=== PATIENT | male | born 1980 | race Caucasian/White ===

== ENCOUNTER 2022-06-22 05:36 | Emergency (ER) | payer BC, SELFPAY ==
[2022-06-22 05:43] VITALS: BP 185/87; PULSE 89; RESP 18; TEMP 36.6; O2SAT 99; BMI 36.9
[2022-06-22 06:07] VITALS: TEMP 36.6
[2022-06-22] MEDS: CYCLOBENZAPRINE HCL 10 MG TABLET PO (06:07)
[2022-06-22] MEDS: ACETAMINOPHEN 500 MG TABLET 1000 MG PO (06:07)
[2022-06-22] MEDS: predniSONE 10 MG TABLET 40 MG PO (06:07)
--- NOTE | 2022-06-22 06:22 | ED.BACK ---
HPI - Back Pain/Injury General Chief Complaint: Back Injury/Pain Stated Complaint: Severe back pain Time Seen by Provider: 06/22/22 05:42 Source: patient and family Mode of arrival: ambulatory Limitations: no limitations History of Present Illness HPI Narrative: Patient reporting pain in the right mid/lower lateral back, worsening this morning. Six days ago, he was wrestling with his dog in the kitchen when he fell backwards striking the corner of his right lower back on the kitchen island. Pain was mild, was able to continue all typical activities. Use ibuprofen a couple of times with good improvement in his symptoms. Patient reports that last night, he coughed hard and noted a twinge of pain in the same area that was worse than before. He was uncomfortable overnight and notes sharp pain in the same area this morning. Pain does not radiate. He has no significant prior history of back surgery. Pain is constant, 7/10, worse with movement. Dull and achy in nature. It is not associated with any GI changes, nausea, vomiting. No skin changes, itching or rash noted. No prior history of similar symptoms. No prior significant imaging, x-ray, CT or MRI of the area. Last dose of ibuprofen was at 7:00 p.m. last night, took 1000 mg. I counseled on appropriate dosing. Denies any other musculoskeletal injuries. Past medical history most notable for hypertension. Reports that he takes lisinopril for this. No known drug allergies. Social history is negative for tobacco use and pertinent travel. Surgical history is negative for recent musculoskeletal or back surgeries. ROS negative for any generalized, cardiovascular, respiratory, GI, urinary, skin or other musculoskeletal issues. Related Data Previous Rx's Medication Instructions Recorded lisinopril 40 mg tablet 40 mg PO QDAY #90 tabs 05/18/22 cyclobenzaprine 10 mg tablet 10 mg PO HS PRN muscle spasm #10 06/22/22 tabs oxycodone 5 mg tablet 2.5 - 5 mg PO Q4H PRN pain #10 tabs 06/22/22 Allergies Allergy/AdvReac Type Severity Reaction Status Date / Time No Known Drug Allergies Allergy Verified 06/22/22 05:45 [facility] Medical History (Updated 06/22/22 @ 06:30 by Vicky Chapin MD) ADHD Hypertension Surgical History (Updated 06/22/22 @ 06:26 by Crow Adan RN) History of appendectomy Social History Smoking Status: Never smoker Do you use any of these nicotine containing products: None Second hand tobacco smoke exposure: No How often do you have a drink containing alcohol: never How often do you have six or more drinks on one occasion: Never AUDIT-C Alcohol total score: 0 Non-prescribed substance use: denies use Exam Const: Vital Signs, click to edit/add: Vital Signs - 24 hr 06/22/22 05:43 06/22/22 06:07 Temperature 97.8 F 97.8 F Pulse Rate [Right Pulse Oximeter] 89 Respiratory Rate 18 Blood Pressure [Le ft Upper Arm] 185/87 H Pulse Oximetry 99 Oxygen Delivery Me thod Room Air Documenting provider has reviewed patient's vital signs: yes General appearance: cooperative and well kempt Other: Mildly distressed from pain, cooperative with exam HENMT: Common normals: normocephalic Head and scalp: normocephalic Throat: posterior oropharynx normal Eye: Common normals: no scleral icterus Other: Normal visual tracking Neck & C-Spine: Common normals: full ROM Resp: Common normals: normal respiratory effort Effort & inspection: able to speak in complete sentences Cardio: Common normals: regular rate, regular rhythm and peripheral pulses 2+ throughout Rate: regular rate Rhythm: regular rhythm Peripheral pulses: pulses 2+ throughout Back & Pelvis: Common normals: thoracic and lumbar spine normal to inspection, no thoracic nor lumbar tenderness and straight leg raise negative bilaterally Other: Increased tenderness with extension and flexion. Point muscular tenderness along the right latissimus area. Spondylosis testing is negative. Straight leg lift is positive only in the 1st 10?, indicating muscular etiology, not in the arc consistent with nerve impingement. Extremity: Common normals: normal to inspection and no pedal edema Neuro: Motor exam: strength 5/5 throughout and no movement abnormalities noted Psych: Appearance: well kempt Attitude: calm and engaged Insight: insight good Judgement: judgment good Skin: Common normals: no rashes or lesions noted General skin exam: no rashes or lesions noted Course Vital Signs Vital signs: Initial Vital Signs Temperature 97.8 F 06/22/22 05:43 Temperature Source Temporal Artery Scan 06/22/22 05:43 Pulse Rate 89 06/22/22 05:43 Respiratory Rate 18 06/22/22 05:43 Blood Pressure 185/87 H 06/22/22 05:43 Blood Pressure Mean 119 06/22/22 05:43 Blood Pressure Position Standing 06/22/22 05:43 Pulse Oximetry 99 06/22/22 05:43 Oxygen Delivery Method 06/22/22 05:43 Vital Signs Temperature 97.8 F 06/22/22 05:43 Pulse Rate 89 06/22/22 05:43 Respiratory Rate 18 06/22/22 05:43 Blood Pressure 185/87 H 06/22/22 05:43 Pulse Oximetry 99 06/22/22 05:43 Oxygen Delivery Method 06/22/22 05:43 Temperature 97.8 F 06/22/22 06:07 Pulse Rate 89 06/22/22 05:43 Respiratory Rate 18 06/22/22 05:43 Blood Pressure 185/87 H 06/22/22 05:43 Pulse Oximetry 99 06/22/22 05:43 Oxygen Delivery Method 06/22/22 05:43 MDM - Back Pain/Injury MDM Narrative Medical decision making narrative: Do not recommend imaging, as exam is consistent with muscular etiology and history would not indicate a need for imaging. Recommended trial of therapeutic medications in the emergency department. Prednisone 40 mg p.o. x1, 1000 mg of Tylenol and 10 mg of Flexeril. Will reassess in 1 hour. If no improvement, consider additional imaging, urinalysis. Update 0650: Medications given about 40 minutes before, not noting any improvement. Will give 10 mg of p.o. oxycodone x1 and reassess. Update 0745, patient with marked improvement after 2nd round of medications. We discussed discharge plan and he is in agreement with no further questions. Differential Diagnosis Differential diagnosis: Likely lumbar radiculopathy, sciatica, strain of lumbar region, renal colic, thoracic back pain and discitis Discharge Plan Discharge Clinical Impression: Strain of lumbar region Patient Disposition: Home w/ Parent or Adult Condition: Improved Instructions: Low Back Strain (ED), Lower Back Exercises (ED) Additional Instructions: For the pain, I recommend beginning with Tylenol. Take 2 extra-strength Tylenol which is a 1000 mg, the equivalent of 3 regular tablets 4 times daily. Alternate with ice and heat for comfort. Take appropriate doses of ibuprofen which is 600 mg every 6 hours as needed. I will also give you prescription for muscle relaxants and oxycodone at the pain is severe. These may make you quite sleepy. For the muscle relaxants, I tend to recommended people take a half of a pill during the day and a full pill at night. Try to wean off of the oxycodone as soon as possible. Rest for today and gently resume light activity tomorrow, resume all normal activities beginning on . If your symptoms persist for longer than 5 days, make a followup with her primary care provider for a physical therapy referral and repeat assessment. It is okay to use topical numbing products and muscle rubs as well. Activity Level: Activity as Tolerated Discharge Diet: Regular Prescriptions: New oxycodone 5 mg tablet 2.5 - 5 mg PO Q4H PRN (Reason: pain) Qty: 10 0RF cyclobenzaprine 10 mg tablet 10 mg PO HS PRN (Reason: muscle spasm) Qty: 10 0RF Rx Instructions: May cause drowsiness No Action lisinopril 40 mg tablet 40 mg PO QDAY Qty: 90 3RF Follow Up/Referrals: Yaw Padilla MD [Primary Care Provider] - Stand Alone Forms: Advanced Image Enhancement Info Instructions
[2022-06-22] MEDS: OXYCODONE 5 MG TABLET 10 MG PO (06:54)
[2022-06-22 08:00] VITALS: BP 160/78; PULSE 80; RESP 18; O2SAT 96
== END 2022-06-22 08:02 | disposition home or self-care (01) ==
PROVIDERS: Emergency Provider Family Medicine; PCP Family Medicine
DX: S39.012A Strain of muscle, fascia and tendon of lower back, initial encounter (principal); Y93.83 Activity, rough housing and horseplay; Y93.9 Activity, unspecified; Y92.019 Unspecified place in single-family (private) house as the place of occurrence of the external cause; Y99.9 Unspecified external cause status
CPT/HCPCS: 99282; 99283; A9270; J7512